=== PATIENT | female | born 1995 | race Caucasian/White ===

== ENCOUNTER → 2017-04-18 | Outpatient (CLI) | payer OTHER ==
--- NOTE | 2017-04-18 13:19 | DIAGNOSTIC IMAGING REPORT ---
LEFT KNEE 4 OR MORE CLINICAL HISTORY: Medial left knee pain. COMPARISON: Left knee radiograph August 06, 2014. FINDINGS: Alignment of the left knee is anatomic. Joint spaces are preserved. There is no fracture or joint effusion. No osseous lesion is identified. IMPRESSION: Unremarkable left knee radiographs. Electronically signed by: Roel Medeiros M.D. 04/18/2017 1:17 PM Dictated Date/Time: 04/18/2017 1:17 PM
== END | disposition home or self-care (01) ==
LOC: C.RDSM 13:00
PROVIDERS: ATTEND Family Medicine
DX: M25.562 Pain in left knee (principal)

== ENCOUNTER → 2017-10-24 | Outpatient (CLI) | payer OTHER ==
--- NOTE | 2017-10-24 16:15 | DIAGNOSTIC IMAGING REPORT ---
MRI LEFT KNEE NO CONTRAST CLINICAL HISTORY: Left knee pain. Injury during rugby game in June 2017. COMPARISON STUDY: Conventional radiographic study of the left knee dated 04/18/2017 FINDINGS: The patient was imaged in the sagittal, axial, and coronal planes. There is no evidence of a pathologic joint effusion. There are no areas of marrow edema to indicate occult fracture or bone bruise. The quadriceps and patellar tendons appear intact. The anterior posterior cruciate ligaments appear intact. The medial and lateral collateral ligaments appear intact. The patellar retinacular structures appear intact. No meniscal tears are visualized. IMPRESSION: No evidence of internal derangement. Electronically signed by: Ha Roberts M.D. 10/24/2017 4:14 PM Dictated Date/Time: 10/24/2017 4:05 PM
== END | disposition home or self-care (01) ==
LOC: C.MRIBC 14:38
PROVIDERS: ATTEND Family Medicine
DX: M25.562 Pain in left knee (principal); S06.0X0A Concussion without loss of consciousness, initial encounter; X58.XXXA Exposure to other specified factors, initial encounter

== ENCOUNTER → 2018-03-12 | Outpatient (CLI) | payer OTHER ==
--- NOTE | 2018-03-12 14:37 | DIAGNOSTIC IMAGING REPORT ---
L KNEE 4 OR MORE CLINICAL HISTORY: LEFT KNEE PAIN pain COMPARISON: None. DISCUSSION: The bones and joint spaces appear intact. There is no evidence of fracture, dislocation or bony disease. There is no evidence for soft tissue swelling. IMPRESSION: Negative study. The above report was generated using voice recognition software. It may contain grammatical, syntax or spelling errors. Electronically signed by: Hebert Avendaño M.D. 03/12/2018 2:35 PM Dictated Date/Time: 03/12/2018 2:35 PM
== END | disposition home or self-care (01) ==
LOC: C.RDSM 13:56
PROVIDERS: ATTEND Family Medicine
DX: S89.92XA Unspecified injury of left lower leg, initial encounter (principal); X58.XXXA Exposure to other specified factors, initial encounter

== ENCOUNTER → 2018-03-14 | Outpatient (CLI) | payer OTHER ==
--- NOTE | 2018-03-14 15:20 | DIAGNOSTIC IMAGING REPORT ---
L CLAVICLE COMPLETE CLINICAL HISTORY: Left clavicular pain status post trauma COMPARISON: None. DISCUSSION: 2 views reveal no acute fractures. The coracoclavicular and acromioclavicular distances appear normal limits. IMPRESSION: No evidence of left clavicular fracture. Electronically signed by: Ha Roberts M.D. 03/14/2018 3:19 PM Dictated Date/Time: 03/14/2018 3:19 PM
--- NOTE | 2018-03-14 15:20 | DIAGNOSTIC IMAGING REPORT ---
CHEST PA ONLY CLINICAL HISTORY: Chest single ventricular pain status post trauma COMPARISON STUDY: 09/24/2014 FINDINGS: The cardiac and mediastinal contours are normal. There is no evidence of focal pulmonary consolidation. There is no evidence of failure. No pleural effusions are visualized.[ There is no pneumothorax. IMPRESSION: No active disease in the chest. Electronically signed by: Ha Roberts M.D. 03/14/2018 3:18 PM Dictated Date/Time: 03/14/2018 3:18 PM
== END | disposition home or self-care (01) ==
LOC: C.RDSM 15:11
PROVIDERS: ATTEND Family Medicine
DX: M25.512 Pain in left shoulder (principal)

== ENCOUNTER → 2018-03-15 | Outpatient (CLI) | payer OTHER ==
--- NOTE | 2018-03-15 15:23 | DIAGNOSTIC IMAGING REPORT ---
MRI OF THE LEFT KNEE CLINICAL HISTORY: Left knee injury. COMPARISON STUDY: Radiographs of the left knee dated 08/06/2014. MRI of the left knee dated 10/24/2017. TECHNIQUE: MRI of the left knee was performed utilizing proton density, T1, and T2-weighted sequences in the axial, sagittal, coronal planes. IV contrast was not administered for this examination. Note that interpretation is suboptimal without current plain film correlate. FINDINGS: Menisci: The medial and lateral menisci are intact. Ligaments: The anterior and posterior cruciate ligaments are intact. There is at least grade 2 injury involving the anterior fibers of the medial collateral ligament with surrounding soft tissue edema. The lateral collateral ligament complex appears maintained. Extensor mechanism: The extensor mechanism is intact. Hoffa's fat pad is normal in appearance. Articular cartilage and bone: The articular cartilage is intact and well maintained all 3 compartments. There is bony contusion identified within the posterior aspect of the medial tibial plateau. There is no MRI evidence of fracture. Joint effusion: There is trace joint fluid. Soft tissues: There is prepatellar soft tissue contusion, greatest laterally. A tiny popliteal cyst measures up to 2.0 cm. The musculature surrounding the knee joint is normal in bulk and signal intensity. IMPRESSION: 1. There is at least grade 2 injury of the medial collateral ligament involving the anterior fibers with surrounding edema. 2. The lateral collateral complex, the menisci, and the cruciate ligaments are intact. 3. There is a bony contusion within the posterior aspect of the medial tibial plateau. 4. Prepatellar soft tissue edema is noted. 5. Trace joint fluid and small popliteal cyst. Electronically signed by: Luis Alvarez M.D. 03/15/2018 3:22 PM Dictated Date/Time: 03/15/2018 3:14 PM
== END | disposition home or self-care (01) ==
LOC: C.MRI 13:35
PROVIDERS: ATTEND Family Medicine
DX: S89.92XA Unspecified injury of left lower leg, initial encounter (principal); S80.02XA Contusion of left knee, initial encounter; X58.XXXA Exposure to other specified factors, initial encounter; M71.22 Synovial cyst of popliteal space [Baker], left knee